=== PATIENT | male | born 1975 | race Caucasian/White ===

== ENCOUNTER 2017-06-15 20:34 | Observation (INO) | payer OTHER ==
[~2017-06-15] VITALS: Ht 175.3 cm; Wt 78.7 kg
[2017-06-15 21:29] LABS: HEMATOCRIT 40.9 % (38.0-50.0); HEMOGLOBIN 14.5 G/DL (12.5-16.6); MCH 30.5 PG (29.0-34.0); MCHC 35.5 G/DL (30.0-36.0); MCV 85.9 FL (86-99); PLATELET COUNT 348 K/uL (156-360); RBC DIS.WIDTH-CV 12.1 % (11.8-14.6); RBC DIS.WIDTH-SD 38.1 % (39-53); RED BLOOD COUNT 4.76 M/uL (4.00-5.50)
[2017-06-15 21:38] LABS: ALBUMIN 3.7 g/dL (3.2-4.8); CHLORIDE 102 mEq/L (99-109); POTASSIUM 4.7 mEq/L (3.7-5.4); SODIUM 133 mEq/L (136-147)
[2017-06-15 21:39] LABS: MAGNESIUM 2.2 mg/dL (1.3-2.7)
[2017-06-15 21:41] LABS: TOTAL PROTEIN 6.5 g/dL (6.4-8.3)
[2017-06-15 21:42] LABS: TOTAL BILIRUBIN 0.4 mg/dL (0.0-1.0)
[2017-06-15 21:44] LABS: ALKALINE PHOSPHATASE 103 IU/L (3-129); GFR ESTIMATE (CALCULATED) > 59 mL/min/ (58.99-99999); PHOSPHORUS 2.5 mg/dL (2.5-4.9)
[2017-06-15 21:45] LABS: UREA NITROGEN (BUN) 23 mg/dL (9-23)
[2017-06-15 21:46] LABS: AST (GOT) 34 IU/L (2-34)
[2017-06-15 21:47] LABS: ALT (GPT) 63 IU/L (3-49)
[2017-06-15 21:50] LABS: GLUCOSE 497 mg/dL (70-99)
[2017-06-16] MEDS ORDERED: OXYCODONE HCL5 MG PO
[2017-06-16] MEDS ORDERED: DECADRON2 MG PO (00:01)
[2017-06-16] MEDS ORDERED: HUMALOG100 UNIT/2 SC (00:01)
[2017-06-16] MEDS ORDERED: PANTOPRAZOLE SO40 MG PO (00:01)
[2017-06-16] MEDS ORDERED: LANTUS 3 M100 UNITS1 SC (00:01)
[2017-06-16] MEDS ORDERED: ATORVASTATIN CA80 MG PO (00:03)
[2017-06-16] MEDS ORDERED: VIMPAT150 MG PO (00:03)
[2017-06-16] MEDS ORDERED: RAMIPRIL2.5 MG PO (00:04)
[2017-06-16 03:45] VITALS: BP 136/88
[2017-06-16 05:40] LABS: HEMATOCRIT 39.4 % (38.0-50.0); HEMOGLOBIN 13.5 G/DL (12.5-16.6); MCH 29.5 PG (29.0-34.0); MCHC 34.3 G/DL (30.0-36.0); PLATELET COUNT 347 K/uL (156-360); RBC DIS.WIDTH-CV 12.2 % (11.8-14.6); RBC DIS.WIDTH-SD 38.4 % (39-53); RED BLOOD COUNT 4.58 M/uL (4.00-5.50); WHITE BLOOD COUNT 10.4 K/uL (4.1-10.2)
[2017-06-16 06:07] LABS: CHLORIDE 105 MEQ/L (99-109); CREATININE 0.8 MG/DL (0.6-1.3); GFR ESTIMATE (CALCULATED) > 59 mL/min/ (58.99-99999); UREA NITROGEN (BUN) 19 mg/dL (9-23)
[2017-06-16 06:09] LABS: GLUCOSE 99 mg/dL (70-99); POTASSIUM 3.3 MEQ/L (3.7-5.4); SODIUM 141 MEQ/L (136-147)
[2017-06-16 07:55] VITALS: BP 112/78
[2017-06-16 12:01] VITALS: BP 131/94
[2017-06-16] MEDS ORDERED: VIMPAT50 MG PO (12:58)
== END 2017-06-16 15:04 | disposition home or self-care (01) ==
LOC: EDBD 20:34 → EME 20:34 → EDOF 06-16 00:56 → 3EAST 06-16 00:56 → ENRESERV 06-16 01:01 → 3EAST 06-16 03:21
PROVIDERS: Emergency Medicine; Hospitalist
DX: R56.9 Unspecified convulsions (principal); E10.65 Type 1 diabetes mellitus with hyperglycemia; C71.9 Malignant neoplasm of brain, unspecified; E78.5 Hyperlipidemia, unspecified; I10 Essential (primary) hypertension; M62.838 Other muscle spasm; Z98.890 Other specified postprocedural states
CPT/HCPCS: 70450; 80048; 80053; 82948; 83735; 84100; 85027; 93005; 95819; 99281; 99285; G0378; J1650; J1815; J7030